=== PATIENT | female | born 1965 | race Caucasian/White ===

== ENCOUNTER 2017-10-24 07:25 | Day surgery (SDC) | payer OTHER ==
[2017-10-24] MEDS ORDERED: Marcaine 0.5% SDV 10 ML IJ ONE (07:26)
[2017-10-24] MEDS ORDERED: DIPRIVAN 200 MG/20 ML IV ONE (07:26)
[2017-10-24] MEDS ORDERED: Lactated Ringers 1,000 ML IV ONE (07:26)
[2017-10-24] MEDS ORDERED: Xylocaine-Mpf 2% 5 Ml Vial IJ ONE (07:26)
[2017-10-24] MEDS ORDERED: Ketamine HCl 50 MG/ML IV ONE (07:26)
--- NOTE | 2017-10-24 10:20 | XRAY ---
Indication: Right L4-L5 MBB. Intraoperative fluoroscopy was provided for 22 seconds. 3 digital spot images submitted for interpretation demonstrates posterior spinal needle tips projecting over the right L3 and L4 pedicles. Correlate with intraoperative findings/report.
--- NOTE | 2017-10-24 10:22 | XRAY ---
22 seconds fluoroscopy time in surgery for right L4-5 MBB.
--- NOTE | 2017-10-25 09:37 | OP ---
DATE OF PROCEDURE: 941 SURGEON: Ralph June D.O. PREOPERATIVE DIAGNOSIS: Degenerative lumbar spine disease, spondylosis, low back pain. POSTOPERATIVE DIAGNOSIS: Degenerative lumbar spine disease, spondylosis, low back pain. PROCEDURE PERFORMED: Right L4-L3 medial branch block under fluoroscopic guidance. DESCRIPTION OF THE PROCEDURE: The patient was taken to the operating room and placed in the prone position on the table. Skin at the injection site was prepped and draped in sterile fashion. Under fluoroscopy, bony anatomy of the targeted injection site was visualized. Induction agent was given as per anesthesia while vital signs were monitored. Local anesthetic agent of 0.5 cc of 1% lidocaine preservative free was introduced to anesthetize the skin and the subcutaneous tissue through the injection site. Under fluoroscopic guidance, a #20 gauge standard spinal needle was advanced into the target medial branch through the oblique approach. The preservative free 0.5 cc of 1% lidocaine and 0.5 cc of 0.25% Marcaine were injected into each of the targeted medial branch nerve. After the needle was being removed, the skin was cleansed with alcohol and then a bandage was applied. No complications or adverse consequences were observed. The patient was returned to the holding area until stabilized before discharge to home. The residual pain after the procedure is 0 out of 10, and there are no acute changes of the lower extremities motor function. No acute lower extremity muscle weakness after the procedure. The patient will be followed up within ten days after the injection for re-evaluation.
== END 2017-10-24 10:23 | disposition home or self-care (01) ==
LOC: SDC-PAIN 07:25
PROVIDERS: ATTEND Internal Medicine
DX: M46.96 Unspecified inflammatory spondylopathy, lumbar region (principal); M51.36 Other intervertebral disc degeneration, lumbar region; M15.9 Polyosteoarthritis, unspecified; M62.838 Other muscle spasm
CPT/HCPCS: 64493; 64494; 72020; 76000; J2704

== ENCOUNTER 2018-04-12 06:08 | Emergency (ER) | payer OTHER ==
[2018-04-12] MEDS ORDERED: Sodium Chloride 0.9% 1000 ML 1,000 ML IV STA ×2 (06:37→08:29)
[2018-04-12] MEDS ORDERED: TORAdol 30 mg Injection IV ONE (06:38)
[2018-04-12] MEDS ORDERED: Sodium Chloride 0.9% 1000 ML 1,000 ML ONE ×2 (06:44→08:34)
[2018-04-12] MEDS ORDERED: TORAdol 30 mg Injection ONE (06:44)
--- NOTE | 2018-04-12 06:44 | ERPHSYRPT ---
- History of Present Illness Source: patient Exam Limitations: no limitations Patient Subjective Stated Complaint: Pain in bilateral upper and medial back, hx of arthritis in back Triage Nursing Assessment: Pt c/o of pain in her upper back and down her spine, hx of osteoarthritis in her back, rates pain 10/10, BP 173/100, stable gait, no difficulty with strength, appears to be in pain Timing/Duration: day(s) Severity: severe Modifying Factors: Improves With: nothing Associated Symptoms: denies symptoms Hx Tetanus, Diphtheria Vaccination/Date Given: No Hx Influenza Vaccination/Date Given: No Hx Pneumococcal Vaccination/Date Given: No <ENOC RANDHAWA - Last Filed: 04/12/18 06:44> <PEYTON SAUCEDO - Last Filed: 04/12/18 11:20> - History of Present Illness Time Seen by Provider: 04/12/18 06:33 Physician History: 53 y/o female with history of osteoarthritis and diabetes comes to the ER with complaints of bilateral mid back pain for the past week. Pt states that she ran out of her all her medications because of insurance issues, including her pain meds and insulin. Glucometer read HI. Pt has been urinating more frequently. Pt describes the back pain as sharp, constant, 10/10, and not relieved by tylenol # 3. Pt denies any fever, chills, abdominal pain, nausea, vomiting, diarrhea, chest pain or shortness of breath. (ENOC RANDHAWA) PMH of HTN, DM, high cholesterol, depression, and chronic back pain. (PEYTON SAUCEDO) Allergies/Adverse Reactions: No Known Drug Allergies Allergy (Verified 04/12/18 06:21) - Review of Systems Constitutional: No Fever, No Chills Eyes: No Symptoms Ears, Nose, & Throat: No Symptoms Respiratory: No Cough, No Dyspnea Cardiac: No Chest Pain, No Edema, No Syncope Abdominal/Gastrointestinal: No Abdominal Pain, No Nausea, No Vomiting, No Diarrhea Genitourinary Symptoms: No Dysuria, No Frequency, No Hematuria, No Urinary Retention Musculoskeletal: Back Pain, No Neck Pain Skin: No Rash Neurological: No Dizziness, No Focal Weakness, No Sensory Changes Psychological: No Symptoms Endocrine: No Symptoms All Other Systems: Reviewed and Negative <ENOC RANDHAWA - Last Filed: 04/12/18 06:44> - Past Medical History Pertinent Past Medical History: Yes Neurological History: Migraines, Peripheral Neuropathy ENT History: No Pertinent History Cardiac History: High Cholesterol, Hypertension Respiratory History: No Pertinent History Endocrine Medical History: Diabetes Type II Musculoskeletal History: Osteoarthritis GI Medical History: No Pertinent History History: Other Psycho-Social History: Depression Female Reproductive Disorders: No Pertinent History Other Medical History: PERIPHERAL NEUROPATHY. disc issues with back. incontinence - Past Surgical History Past Surgical History: Yes Neuro Surgical History: No Pertinent History Cardiac: No Pertinent History Respiratory: No Pertinent History Gastrointestinal: Cholecystectomy Genitourinary: Other Musculoskeletal: Other Female Surgical History: Hysterectomy, Tubal Ligation Other Surgical History: bladder tie up - Social History Smoking Status: Current every day smoker How long have you smoked: 30years Exposure to second hand smoke: Yes Drug Use: none Patient Lives Alone: No Significant Family History: no pertinent family hx - Female History Hx Now: No <ENOC RANDHAWA - Last Filed: 04/12/18 06:44> - Physical Exam General Appearance: moderate distress, alert Eye Exam: PERRL/EOMI, eyes nml inspection Ears, Nose, Throat Exam: normal ENT inspection, TMs normal, pharynx normal, moist mucous membranes Neck Exam: normal inspection, non-tender, supple, full range of motion Respiratory Exam: normal breath sounds, lungs clear, No respiratory distress Cardiovascular Exam: regular rate/rhythm, normal heart sounds, normal peripheral pulses Gastrointestinal/Abdomen Exam: soft, normal bowel sounds, No tenderness, No mass Back Exam: normal inspection, CVA tenderness, No vertebral tenderness Extremity Exam: normal inspection, normal range of motion, pelvis stable Neurologic Exam: alert, oriented x 3, cooperative, normal mood/affect, nml cerebellar function, nml station & gait, sensation nml, No motor deficits Skin Exam: normal color, warm, dry, No rash Lymphatic Exam: No adenopathy SpO2: 97 Oxygen Delivery: Room Air <ENOC RANDHAWA - Last Filed: 04/12/18 06:44> - Physical Exam Back Exam: muscle spasm (pt is very tender to palpation of thoracic paraspinous and scapular musculature.) <PEYTON SAUCEDO - Last Filed: 04/12/18 11:20> - Nursing Vital Signs Nursing Vital Signs: Initial Vital Signs Temperature 98.6 F 04/12/18 06:13 Pulse Rate 88 04/12/18 06:13 Blood Pressure 173/100 04/12/18 06:13 O2 Sat by Pulse Oximetry 97 04/12/18 06:13 Pain Scale Pain Intensity 10 - Course Nursing assessment & vital signs reviewed: Yes <ENOC RANDHAWA - Last Filed: 04/12/18 06:44> - CT Exams Abdomen/Pelvis CT Interpretation: Negative, Tele-radiologist Report (per Dr Cano), Other (mild fecal stasis; otherwise negative.) <PEYTON SAUCEDO - Last Filed: 04/12/18 11:20> Ordered Tests: Active Orders 24 hr Category Date Time Status ACCUCHECK [Accucheck] STAT Care 04/12/18 08:29 Active ACCUCHECK [Accucheck] STAT Care 04/12/18 09:34 Active ACCUCHECK [Accucheck] STAT Care 04/12/18 10:48 Active Cold Application STAT Care 04/12/18 08:59 Active ABDOMEN AND PELVIS W/0 CONTRAS [CT] Stat Exams 04/12/18 06:38 Completed AMYLASE Stat Lab 04/12/18 07:21 Completed CBC W DIFF Stat Lab 04/12/18 06:25 Completed CK-Creatinine Phosphokinase Stat Lab 04/12/18 06:25 Completed CMP Stat Lab 04/12/18 06:25 Completed CULTURE,URINE Stat Lab 04/12/18 06:25 Received LIPASE Stat Lab 04/12/18 07:21 Completed Lactic Acid Stat Lab 04/12/18 06:47 Results MAGNESIUM Stat Lab 04/12/18 06:25 Completed UA W/ MICROSCOPIC Stat Lab 04/12/18 06:25 Completed VENOUS BLOOD GAS Stat Lab 04/12/18 06:47 Results Medication Summary Discontinued Medications Generic Name Dose Route Start Last Admin Trade Name Freq PRN Reason Stop Dose Admin Cyclobenzaprine HCl 10 mg 04/12/18 08:02 04/12/18 08:07 Cyclobenzaprine 10 Mg PO 04/12/18 08:03 10 mg STAT ONE Administration Cyclobenzaprine HCl Confirm 04/12/18 08:05 Cyclobenzaprine 10 Mg Administered 04/12/18 08:06 Dose 10 mg .ROUTE .STK-MED ONE Diphenhydramine HCl 50 mg 04/12/18 08:55 04/12/18 09:04 Benadryl 50 Mg/Ml IV 04/12/18 08:56 50 mg STAT ONE Administration Diphenhydramine HCl Confirm 04/12/18 08:58 Benadryl 50 Mg/Ml Administered 04/12/18 08:59 Dose 50 mg .ROUTE .STK-MED ONE Sodium Chloride 1,000 mls @ 999 mls/hr 04/12/18 06:37 04/12/18 08:20 Sodium Chloride 0.9% 1000 Ml IV 04/12/18 07:37 999 mls/hr .Q1H1M STA Infusion Sodium Chloride Confirm 04/12/18 06:44 Sodium Chloride 0.9% 1000 Ml Administered 04/12/18 06:45 Dose 1,000 mls @ ud .ROUTE .STK-MED ONE Sodium Chloride 1,000 mls @ 999 mls/hr 04/12/18 08:29 04/12/18 08:39 Sodium Chloride 0.9% 1000 Ml IV 04/12/18 09:29 999 mls/hr .Q1H1M STA Administration Sodium Chloride Confirm 04/12/18 08:34 Sodium Chloride 0.9% 1000 Ml Administered 04/12/18 08:35 Dose 1,000 mls @ ud .ROUTE .STK-MED ONE Insulin Human Regular 10 unit 04/12/18 09:11 04/12/18 09:22 Novolin R IV 04/12/18 09:12 10 unit STAT ONE Administration Insulin Human Regular Confirm 04/12/18 09:18 Novolin R Administered 04/12/18 09:19 Dose 10 unit .ROUTE .STK-MED ONE Ketorolac Tromethamine 30 mg 04/12/18 06:38 04/12/18 06:48 Toradol 30 Mg Injection IV 04/12/18 06:39 30 mg STAT ONE Administration Ketorolac Tromethamine Confirm 04/12/18 06:44 Toradol 30 Mg Injection Administered 04/12/18 06:45 Dose 30 mg .ROUTE .STK-MED ONE Lorazepam 2 mg 04/12/18 08:02 04/12/18 08:07 Ativan 2 Mg/1 Ml Vial IV 04/12/18 08:03 2 mg STAT ONE Administration Lorazepam Confirm 04/12/18 08:05 Ativan 2 Mg/1 Ml Vial Administered 04/12/18 08:06 Dose 2 mg .ROUTE .STK-MED ONE Morphine Sulfate 4 mg 04/12/18 10:48 04/12/18 10:51 Morphine Sulfate 4 Mg Inj IV 04/12/18 10:49 4 mg STAT ONE Administration Morphine Sulfate Confirm 04/12/18 10:50 Morphine Sulfate 4 Mg Inj Administered 04/12/18 10:51 Dose 4 mg .ROUTE .STK-MED ONE Lab/Rad Data: Laboratory Result Diagrams 04/12/18 06:25 04/12/18 06:25 Laboratory Results 04/12/18 04/12/18 04/12/18 Range/Units 07:21 06:47 06:25 WBC (4.0-10.5) K/mm3 RBC (4.1-5.4) M/mm3 Hgb (12.0-16.0) gm/dl Hct (35-47) % MCV (78-100) fl MCH (26-32) pg MCHC (32-36) g/dl RDW (11.5-14.0) % Plt Count (150-450) K/mm3 MPV (6-9.5) fl Gran % (36.0-66.0) % Eos # (Auto) (0-0.5) Absolute Lymphs (auto) (1.0-4.6) Absolute Monos (auto) (0.0-1.3) Lymphocytes % (24.0-44.0) % Monocytes % (0.0-12.0) % Eosinophils % (0.00-5.0) % Basophils % (0.0-0.4) % Absolute Granulocytes (1.4-6.9) Basophils # (0-0.4) pO2/FiO2 Ratio 21.0 % VBG pH 7.34 (7.32-7.42) VBG pCO2 at Pat Temp 47 (42-55) mm/Hg VBG pO2 at Pat Temp 30 (25-40) mm/Hg VBG HCO3 25.4 (22-28) meq/L VBG O2 Sat (Dat) Pending VBG Base Excess -0.8 (-2.0-2.0) VBG Hemoglobin Pending VBG Carboxyhemoglobin Pending POC Potassium 5.1 (3.5-5.1) Sodium (137-145) mmol/L Potassium (3.5-5.1) mmol/L Chloride (98-107) mmol/L Carbon Dioxide (22-30) mmol/L Anion Gap (5-15) MEQ/L BUN (7-17) mg/dL Creatinine (0.52-1.04) mg/dL Estimated GFR ML/MIN Glucose (74-106) mg/dL Lactic Acid 1.1 (0.4-2.0) Calcium (8.4-10.2) mg/dL Magnesium (1.6-2.3) mg/dL Total Bilirubin (0.2-1.3) mg/dL AST (14-36) U/L ALT (0-35) U/L Alkaline Phosphatase (38-126) U/L Creatine Kinase (30-135) U/L Serum Total Protein (6.3-8.2) g/dL Albumin (3.5-5.0) g/dL Amylase < 30 L (30-110) U/L Lipase 87 (23-300) U/L Ur Collection Type CLEAN CATCH Urine Color LT.YELLOW (YELLOW) Urine Appearance CLEAR (CLEAR) Urine pH 5.0 (5-6) Ur Specific Mcleod 1.015 (1.005-1.025) Urine Protein 30 (Negative) Urine Ketones NEGATIVE (NEGATIVE) Urine Blood 250 (0-5) Michael/ul Urine Nitrite NEGATIVE (NEGATIVE) Urine Bilirubin NEGATIVE (NEGATIVE) Urine Urobilinogen NORMAL (0-1) mg/dL Ur Leukocyte Esterase TRACE (NEGATIVE) Urine Microscopic RBC 0-2 (0-2) /HPF Urine Microscopic WBC 2-5 (0-5) /HPF Ur Epithelial Cells MANY (FEW) /HPF Urine Bacteria FEW (NEGATIVE) /HPF Urine Culture Reflexed YES (NO) Urine Glucose 1000 (NEGATIVE) mg/dL Specimen Received 04/12/18 0700 04/12/18 04/12/18 Range/Units 06:25 06:25 WBC 4.9 (4.0-10.5) K/mm3 RBC 4.15 (4.1-5.4) M/mm3 Hgb 12.1 (12.0-16.0) gm/dl Hct 34.0 L (35-47) % MCV 81.9 (78-100) fl MCH 29.2 (26-32) pg MCHC 35.6 (32-36) g/dl RDW 14.7 H (11.5-14.0) % Plt Count 159 (150-450) K/mm3 MPV 11.8 H (6-9.5) fl Gran % 68.0 H (36.0-66.0) % Eos # (Auto) 0.04 (0-0.5) Absolute Lymphs (auto) 1.13 (1.0-4.6) Absolute Monos (auto) 0.37 (0.0-1.3) Lymphocytes % 22.9 L (24.0-44.0) % Monocytes % 7.5 (0.0-12.0) % Eosinophils % 0.8 (0.00-5.0) % Basophils % 0.8 (0.0-0.4) % Absolute Granulocytes 3.35 (1.4-6.9) Basophils # 0.04 (0-0.4) pO2/FiO2 Ratio % VBG pH (7.32-7.42) VBG pCO2 at Pat Temp (42-55) mm/Hg VBG pO2 at Pat Temp (25-40) mm/Hg VBG HCO3 (22-28) meq/L VBG O2 Sat (Dat) VBG Base Excess (-2.0-2.0) VBG Hemoglobin VBG Carboxyhemoglobin POC Potassium (3.5-5.1) Sodium 126 L (137-145) mmol/L Potassium 4.9 (3.5-5.1) mmol/L Chloride 94 L (98-107) mmol/L Carbon Dioxide 15 L* (22-30) mmol/L Anion Gap 21.6 H (5-15) MEQ/L BUN 35 H (7-17) mg/dL Creatinine 0.93 (0.52-1.04) mg/dL Estimated GFR > 60.0 ML/MIN Glucose 617 H* (74-106) mg/dL Lactic Acid (0.4-2.0) Calcium 9.2 (8.4-10.2) mg/dL Magnesium 1.6 (1.6-2.3) mg/dL Total Bilirubin 0.70 (0.2-1.3) mg/dL AST 11 L (14-36) U/L ALT 11 (0-35) U/L Alkaline Phosphatase 145 H (38-126) U/L Creatine Kinase 26 L (30-135) U/L Serum Total Protein 7.2 (6.3-8.2) g/dL Albumin 3.0 L (3.5-5.0) g/dL Amylase (30-110) U/L Lipase (23-300) U/L Ur Collection Type Urine Color (YELLOW) Urine Appearance (CLEAR) Urine pH (5-6) Ur Specific Mcleod (1.005-1.025) Urine Protein (Negative) Urine Ketones (NEGATIVE) Urine Blood (0-5) Michael/ul Urine Nitrite (NEGATIVE) Urine Bilirubin (NEGATIVE) Urine Urobilinogen (0-1) mg/dL Ur Leukocyte Esterase (NEGATIVE) Urine Microscopic RBC (0-2) /HPF Urine Microscopic WBC (0-5) /HPF Ur Epithelial Cells (FEW) /HPF Urine Bacteria (NEGATIVE) /HPF Urine Culture Reflexed (NO) Urine Glucose (NEGATIVE) mg/dL Specimen Received - Progress Progress: unchanged <ENOC RANDHAWA - Last Filed: 04/12/18 06:44> - Progress Progress: improved Counseled pt/family regarding: lab results, diagnosis, need for follow-up, rad results <PEYTON SAUCEDO - Last Filed: 04/12/18 11:20> - Progress Progress Note: 04/12/18 07:12 Pt care discussed and care accepted from Dr Randhawa at 07:00. 04/12/18 08:33 After 1 L NS by IV, accucheck is 599. will give another liter of NS. 04/12/18 08:34 (PEYTON SAUCEDO) <ENOC RANDHAWA - Last Filed: 04/12/18 06:44> - Departure Time of Disposition: 11:16 Departure Disposition: Home Critical Care Time: No <PEYTON SAUCEDO - Last Filed: 04/12/18 11:20> - Departure Clinical Impression: Back pain, Hyperglycemia Condition: Stable Referrals: EMILIE BURDEN [Primary Care Provider] - Additional Instructions: You have back pain that originates in the muscles of your back. You also have elevated blood glucose because you have not been taking your medicines for diabetes. You were given Toradol 30 mg, Ativan 2 mg, Benadryl 50 mg, morphine 4 mg, and 2 L of fluids by IV and Flexeril 10 mg orally in the ER. Take Flexeril 10 mg every 8 hours as needed. You have an appointment set up with Dr. Burden on Sunday. Prescriptions: Cyclobenzaprine HCl [Flexeril] 10 mg PO Q8H PRN PRN #10 tablet PRN Reason: Pain
[2018-04-12 07:03] LABS: Lactic Acid 1.1 (0.4-2.0); VBG BASE EXCESS -0.8 (-2.0-2.0); VBG HCO3- 25.4 meq/L (22-28); VBG POTASSIUM 5.1 (3.5-5.1); VBG pH 7.34 (7.32-7.42)
[2018-04-12 07:16] LABS: ALKALINE PHOSPHATASE 145 U/L (38-126); ANION GAP 21.6 MEQ/L (5-15); BLOOD UREA NITROGEN 35 mg/dL (7-17); CHLORIDE 94 mmol/L (98-107); CK-Creatinine Phosphokinase 26 U/L (30-135); Calcium 9.2 mg/dL (8.4-10.2); Creatinine 1 0.93 mg/dL (0.52-1.04); Potassium 4.9 mmol/L (3.5-5.1); SGOT/AST 11 U/L (14-36); SGPT/ALT 11 U/L (0-35); SODIUM 126 mmol/L (137-145); Total Protein 7.2 g/dL (6.3-8.2)
[2018-04-12 07:19] LABS: Glucose 617 mg/dL (74-106)
[2018-04-12 07:20] LABS: Carbon Dioxide 15 mmol/L (22-30)
[2018-04-12 07:30] LABS: Appearance CLEAR (CLEAR); Glucose 1000 mg/dL (NEGATIVE); Ketones NEGATIVE (NEGATIVE); Leukocyte Esterase TRACE (NEGATIVE); Nitrite NEGATIVE (NEGATIVE); Protein,Urine Dip 30 (Negative); Specific Gravity 1.015 (1.005-1.025); Urobilinogen NORMAL mg/dL (0-1)
[2018-04-12 07:31] LABS: Bilirubin NEGATIVE (NEGATIVE); Blood 250 Ery/ul (0-5); Epithelial Cells MANY /HPF (FEW); RBC 0-2 /HPF (0-2)
[2018-04-12 07:33] LABS: AMYLASE < 30 U/L (30-110); LIPASE 87 U/L (23-300)
[2018-04-12 07:36] LABS: Bacteria FEW /HPF (NEGATIVE)
[2018-04-12 07:48] LABS: BASOPHIL % 0.8 % (0.0-0.4); Basophil (Absolute #) 0.04 (0-0.4); Eosinophil % 0.8 % (0.00-5.0); Eosinophil (Absolute #) 0.04 (0-0.5); Granulocyte Absolute (ANC) 3.35 (1.4-6.9); Hemoglobin 12.1 gm/dl (12.0-16.0); Lymphocyte (Absolute #) 1.13 (1.0-4.6); Lymphocytes % 22.9 % (24.0-44.0); Mean Cell Volume 81.9 fl (78-100); Mean Corpuscular Hemoglobin 29.2 pg (26-32); Mean Corpuscular Hgb Concent. 35.6 g/dl (32-36); Mean Platelet Volume 11.8 fl (6-9.5); Monocyte (Absolute #) 0.37 (0.0-1.3); Monocytes % 7.5 % (0.0-12.0); Platelet Count 159 K/mm3 (150-450); Red Blood Count 4.15 M/mm3 (4.1-5.4); Red Cell Distribution Width 14.7 % (11.5-14.0); White Blood Count 4.9 K/mm3 (4.0-10.5)
[2018-04-12] MEDS ORDERED: Ativan 2 MG/1 ML VIAL IV ONE (08:02)
[2018-04-12] MEDS ORDERED: Cyclobenzaprine 10 MG PO ONE (08:02)
[2018-04-12] MEDS ORDERED: Cyclobenzaprine 10 MG ONE (08:05)
[2018-04-12] MEDS ORDERED: Ativan 2 MG/1 ML VIAL ONE (08:05)
--- NOTE | 2018-04-12 08:48 | XRAY ---
Indication: Abdomen pain. Multiple contiguous axial images obtained through the abdomen and pelvis without contrast as ordered. Comparison: None Lung bases demonstrate mild bibasilar dependent atelectasis. No infiltrate or effusion. Heart is not enlarged. Noncontrasted stomach and bowel loops appear nonobstructed. Mild diffuse scattered colonic fecal debris throughout. Normal appendix. Previous cholecystectomy and hysterectomy. No free fluid/air. A few hepatic calcified granulomas and 13.5 cm splenomegaly. Remaining liver, pancreas, spleen, adrenal glands, kidneys, ureters, and bladder bladder unremarkable for noncontrast exam. Minimal aortic calcifications without AAA. Osseous structures intact with mild multilevel spinal degenerative changes greatest at the lumbosacral junction. No ventral or inguinal hernias. Impression: 1. Mild fecal stasis without obstruction and splenomegaly. 2. Remaining CT abdomen/pelvis without contrast exam is negative. CTDI 23.33
[2018-04-12] MEDS ORDERED: BENADRYL 50 MG/ML IV ONE (08:55)
[2018-04-12] MEDS ORDERED: BENADRYL 50 MG/ML ONE (08:58)
[2018-04-12] MEDS ORDERED: NovoLIN R IV ONE (09:11)
[2018-04-12] MEDS ORDERED: NovoLIN R ONE (09:18)
[2018-04-12] MEDS ORDERED: MORPHINE SULFATE 4 MG INJ IV ONE (10:48)
[2018-04-12] MEDS ORDERED: MORPHINE SULFATE 4 MG INJ ONE (10:50)
[2018-04-12 10:59] VITALS: O2SAT 94
[2018-04-12 11:36] VITALS: BP 131/78; PULSE 80
== END 2018-04-12 11:35 | disposition home or self-care (01) ==
LOC: ED 06:08
DX: M54.9 Dorsalgia, unspecified (principal); E11.65 Type 2 diabetes mellitus with hyperglycemia; M62.830 Muscle spasm of back
CPT/HCPCS: 36415; 74176; 80053; 81000; 82150; 82550; 82805; 82962; 83605; 83690; 83735; 85025; 87086; 96360; 96361; 96374; 96375; 99285; J1200; J1885; J2060; J2270; A9270-GY

== ENCOUNTER 2018-09-29 10:09 | Emergency (ER) | payer OTHER ==
[2018-09-29 10:36] VITALS: BP 138/77; PULSE 88; O2SAT 97
[2018-09-29] MEDS ORDERED: BACIGUENT PACKET ONE (10:58)
[2018-09-29] MEDS ORDERED: XYLOCAINE 2% HCL 20 ML MDV ONE (10:58)
[2018-09-29] MEDS ORDERED: Adacel Vial IM ONE ×2 (10:58→11:00)
--- NOTE | 2018-09-29 10:58 | ERPHSYRPT ---
- History of Present Illness Source: patient Exam Limitations: no limitations Patient Subjective Stated Complaint: cut end of left thumb on a knife while cutting cucumbers at work at [employer]. Triage Nursing Assessment: 2-3 cm flap lac to end of left thumb with minimal bleeding. Physician History: Pt is a 53 y/o female that presented to the ED with a laceration on her left thumb. Pt was cutting cucumbers at work and cut her left thumb on the lateral side, and ended up with a flap. The pt denies F/C/S. No dizziness, no N/V. Timing/Duration: today Quality: painful Severity: mild Location: hands Possible Causes: no cause identified Associated Symptoms: denies symptoms Allergies/Adverse Reactions: No Known Drug Allergies Allergy (Verified 09/29/18 10:18) Hx Tetanus, Diphtheria Vaccination/Date Given: No Hx Influenza Vaccination/Date Given: No Hx Pneumococcal Vaccination/Date Given: No - Review of Systems Constitutional: No Fever, No Chills Eyes: No Symptoms Ears, Nose, & Throat: No Symptoms Respiratory: No Cough, No Dyspnea Cardiac: No Chest Pain, No Edema, No Syncope Abdominal/Gastrointestinal: No Abdominal Pain, No Nausea, No Vomiting, No Diarrhea Skin: Other (laceration that is in a flap fashin on the lateral left thumb.) - Past Medical History Pertinent Past Medical History: Yes Neurological History: Migraines, Peripheral Neuropathy ENT History: No Pertinent History Cardiac History: High Cholesterol, Hypertension Respiratory History: No Pertinent History Endocrine Medical History: Diabetes Type II Musculoskeletal History: Osteoarthritis GI Medical History: No Pertinent History History: Other Psycho-Social History: Depression Female Reproductive Disorders: No Pertinent History Other Medical History: PERIPHERAL NEUROPATHY. disc issues with back. incontinence - Past Surgical History Past Surgical History: Yes Neuro Surgical History: No Pertinent History Cardiac: No Pertinent History Respiratory: No Pertinent History Gastrointestinal: Cholecystectomy Genitourinary: Other Musculoskeletal: Other Female Surgical History: Hysterectomy, Tubal Ligation Other Surgical History: bladder tie up - Social History Smoking Status: Current every day smoker How long have you smoked: 5 Exposure to second hand smoke: No Drug Use: none Patient Lives Alone: No Significant Family History: no pertinent family hx - Female History Hx Now: No - Nursing Vital Signs Nursing Vital Signs: Initial Vital Signs Temperature 97.5 F 09/29/18 10:15 Pulse Rate 88 09/29/18 10:15 Respiratory Rate 16 09/29/18 10:15 Blood Pressure 138/77 09/29/18 10:15 O2 Sat by Pulse Oximetry 97 09/29/18 10:15 Pain Scale Pain Intensity 2 - Physical Exam General Appearance: no apparent distress, alert Eye Exam: PERRL/EOMI, eyes nml inspection Ears, Nose, Throat Exam: normal ENT inspection, pharynx normal, moist mucous membranes Skin Exam: laceration (laceration that is in a flap fashin on the lateral left thumb.) SpO2: 97 Procedures - Laceration/Wound Repair Left Upper Lateral Finger Wound Location: Left, hand (thumb) Wound Length (cm): 2 Wound's Depth, Shape: superficial, irregular (flap like laceration) Wound Explored: contaminated Irrigated: Yes Hibiclens Prep: Yes Anesthesia: local, 2% Lidocaine Volume Anesthetic (ccs): 5 Number of Sutures: 4 Deep Layer Suture Size/Type: 5:0 Sterile Dressing Applied?: Yes Splint Applied?: No Sling Applied?: No Progress: 09/29/18 10:58 The thumb was cleaned with hibiclens. $ stitches 5:0 were applied to 4 sides of the laceration. Skin glue was applied as well, and the laceration is a flap , and pt is aware that it might not adhere, and will fall later. The area was cleaned well, bacitracin was applied and the thumb is wrapped. Pt was instructed to cover the dressing and keep it dry and clean. She should f/u with PCp to remove stitches in 7-10 days. - Course Nursing assessment & vital signs reviewed: Yes - Progress Progress: improved Progress Note: 09/29/18 11:01 The thumb was cleaned with hibiclens. 4 stitches 5:0 were applied to 4 sides of the laceration. Skin glue was applied as well, and the laceration is a flap , and pt is aware that it might not adhere, and will fall later. The area was cleaned well, bacitracin was applied and the thumb is wrapped. Pt was instructed to cover the dressing and keep it dry and clean. She should f/u with PCP to remove stitches in 7-10 days. Will see patient in: office Counseled pt/family regarding: need for follow-up - Departure Time of Disposition: 11:02 Departure Disposition: Home Clinical Impression: Laceration of thumb Condition: Stable Critical Care Time: No Referrals: EMILIE BURDEN [Primary Care Provider] - Instructions: Wound Care (DC), Laceration Repair With Glue (DC), Laceration Repair With Stitches (DC) Additional Instructions: Keep area clean and dry and f/u with PCP in 7-10 days. Finish Augmentin as ordered. Prescriptions: Amox Tr/Potass Clav. 875 mg [Augmentin 875-125 Tablet] 1 each PO BID 7 Days #14 tablet
[2018-09-29] MEDS ORDERED: BACIGUENT PACKET TP ONE (11:00)
[2018-09-29] MEDS ORDERED: XYLOCAINE 2% HCL 20 ML MDV IJ ONE (11:00)
== END 2018-09-29 11:50 | disposition home or self-care (01) ==
LOC: ED 10:09
DX: S61.012A Laceration without foreign body of left thumb without damage to nail, initial encounter (principal); W26.0XXA Contact with knife, initial encounter; W45.8XXA Other foreign body or object entering through skin, initial encounter; Y92.511 Restaurant or cafe as the place of occurrence of the external cause; Y99.0 Civilian activity done for income or pay; G62.9 Polyneuropathy, unspecified; E78.00 Pure hypercholesterolemia, unspecified; I10 Essential (primary) hypertension; E11.9 Type 2 diabetes mellitus without complications; M19.90 Unspecified osteoarthritis, unspecified site; F41.9 Anxiety disorder, unspecified
CPT/HCPCS: 12001; 90471; 90715; 99284; A9270-GY

== ENCOUNTER 2020-02-16 12:43 | Emergency (ER) | payer MEDICAID, OTHER ==
--- NOTE | 2020-02-16 13:56 | XRAY ---
Indication: Low back pain. Comparison: December 06, 2016. 3 view lumbar spine unchanged again demonstrating normal alignment with minimal multilevel endplate spurring, moderate/advanced L5-S1 degenerative disc disease, mild bilateral L5-S1 degenerative facet arthropathy, and cholecystectomy clips. No new/acute findings.
[2020-02-16] MEDS ORDERED: MORPHINE SULFATE 2 MG INJ IM ONE (14:06)
[2020-02-16] MEDS ORDERED: MORPHINE SULFATE 2 MG INJ ONE (14:16)
--- NOTE | 2020-02-16 14:58 | ERPHSYRPT ---
- History of Present Illness Time Seen by Provider: 02/16/20 12:55 Source: patient Exam Limitations: no limitations Patient Subjective Stated Complaint: back pain Triage Nursing Assessment: pt to ED c/o back pain x 1 week. states has been using ibuprofen, alleve, tylenol and heat packs at home with no relief. denies injury, pt woke with back ache last sunday. rates 10/10 that worsens with ambulation. hx osteoarthritis. "it feels like a nerve pain, its shooting and sharp sometimes." ambulatory without assistance, A&Ox4, lung sounds clear, heart sounds clear. denies urinary or bowel problems at this time. Physician History: Patient is a 54-year-old female presents to our ED with complaints of low back pain that started approximately 1 week ago. Pain described as an ache that is well localized. No radiation. Pain worse with movement and palpation. Pain improved with rest. Patient denies trauma. However patient does state that she was pulling weeds 2 days before the onset of her symptoms. She does not recall any injury or pain at that time. Patient denies fever. No saddle anesthesia. No lower extremity numbness tingling or weakness. Symptoms are constant. Symptoms are moderate in intensity. Patient denies recent back procedures. Timing/Duration: today Severity: moderate Modifying Factors: Improves With: immobilization Associated Symptoms: denies symptoms Allergies/Adverse Reactions: No Known Drug Allergies Allergy (Verified 02/16/20 12:59) Hx Tetanus, Diphtheria Vaccination/Date Given: No Hx Influenza Vaccination/Date Given: No Hx Pneumococcal Vaccination/Date Given: No Travel Risk - International Travel Have you traveled outside of the country in past 3 weeks: No - Coronavirus Screening Are you exhibiting any of the following symptoms?: No Close contact with a COVID-19 positive Pt in past 14-21 Days: No - Review of Systems Constitutional: No Symptoms, No Fever, No Chills Eyes: No Symptoms Ears, Nose, & Throat: No Symptoms Respiratory: No Symptoms, No Cough, No Dyspnea Cardiac: No Symptoms, No Chest Pain, No Edema, No Syncope Abdominal/Gastrointestinal: No Symptoms, No Abdominal Pain, No Nausea, No Vomiting, No Diarrhea Genitourinary Symptoms: No Symptoms, No Dysuria Musculoskeletal: No Symptoms, No Back Pain, No Neck Pain Skin: No Symptoms, No Rash Neurological: No Symptoms, No Dizziness, No Focal Weakness, No Sensory Changes Psychological: No Symptoms Endocrine: No Symptoms Hematologic/Lymphatic: No Symptoms Immunological/Allergic: No Symptoms All Other Systems: Reviewed and Negative - Past Medical History Pertinent Past Medical History: Yes Neurological History: Migraines, Peripheral Neuropathy ENT History: No Pertinent History Cardiac History: High Cholesterol, Hypertension Respiratory History: No Pertinent History Endocrine Medical History: Diabetes Type II Musculoskeletal History: Osteoarthritis GI Medical History: No Pertinent History History: Other Psycho-Social History: Depression Female Reproductive Disorders: No Pertinent History Other Medical History: PERIPHERAL NEUROPATHY. disc issues with back. inco ntinence - Past Surgical History Past Surgical History: Yes Neuro Surgical History: No Pertinent History Cardiac: No Pertinent History Respiratory: No Pertinent History Gastrointestinal: Cholecystectomy Genitourinary: Other Musculoskeletal: No Pertinent History Female Surgical History: Hysterectomy, Tubal Ligation Other Surgical History: bladder tie up - Social History Smoking Status: Current every day smoker How long have you smoked: years Exposure to second hand smoke: No Drug Use: none Patient Lives Alone: No Significant Family History: no pertinent family hx - Female History Hx Now: No - Nursing Vital Signs Nursing Vital Signs: Initial Vital Signs Temperature 99.1 F 02/16/20 12:52 Pulse Rate 102 H 02/16/20 12:52 Respiratory Rate 16 02/16/20 12:52 Blood Pressure 170/112 02/16/20 12:52 O2 Sat by Pulse Oximetry 96 02/16/20 12:52 Pain Scale Pain Intensity [] 10 Pain Intensity 2 - Physical Exam General Appearance: no apparent distress, alert Eye Exam: PERRL/EOMI, eyes nml inspection Ears, Nose, Throat Exam: normal ENT inspection, TMs normal, pharynx normal, mo ist mucous membranes Neck Exam: normal inspection, non-tender, supple, full range of motion Respiratory Exam: normal breath sounds, lungs clear, No respiratory distress Cardiovascular Exam: regular rate/rhythm, normal heart sounds, normal peripheral pulses Gastrointestinal/Abdomen Exam: soft, normal bowel sounds, No tenderness, No mass Back Exam: normal inspection, normal range of motion, No CVA tenderness, No vertebral tenderness Extremity Exam: normal inspection, normal range of motion, pelvis stable Neurologic Exam: alert, oriented x 3, cooperative, normal mood/affect, nml cerebellar function, nml station & gait, sensation nml, No motor deficits Skin Exam: normal color, warm, dry, No rash Lymphatic Exam: No adenopathy SpO2: 98 O2 Delivery: Room Air - Course Nursing assessment & vital signs reviewed: Yes EKG Interpreted by Me: RATE (75), Sinus Rhythm, NORMAL AXIS, NORMAL INTERVALS - Radiology Exams L-Spine X-ray Interpretation: Teleradiologist Report (Alignment with minimal multilevel endplate spurring. Moderate/advanced L5-S1 degenerative disc disease. Mild bilateral L5-S1 degenerative facet arthropathy and cholecystectomy clips. No new or acute findings.) Ordered Tests: Active Orders 24 hr Category Date Time Status EKG-ER Only STAT Care 02/16/20 15:52 Active IV Insertion STAT Care 02/16/20 15:52 Active LUMBAR LIMITED (2 OR 3 VIEWS) Stat Exams 02/16/20 13:19 Completed CBC W DIFF Stat Lab 02/16/20 16:00 Completed CMP Stat Lab 02/16/20 16:00 Completed CULTURE,URINE Stat Lab 02/16/20 13:34 Received TROPONIN Q3H Lab 02/16/20 16:00 Received TROPONIN Q3H Lab 02/16/20 19:00 Ordered TROPONIN Q3H Lab 02/16/20 22:00 Ordered TROPONIN Q3H Lab 02/17/20 01:00 Ordered TROPONIN Q3H Lab 02/17/20 04:00 Ordered UA W/RFX UR CULTURE Stat Lab 02/16/20 13:34 Completed Medication Summary Generic Name Dose Route Start Last Admin Trade Name Freq PRN Reason Stop Dose Admin Sodium Chloride 1,000 mls @ 999 mls/hr 02/16/20 15:52 02/16/20 16:08 Sodium Chloride 0.9% 1000 Ml IV 02/16/20 16:52 999 mls/hr .Q1H1M STA Administration Discontinued Medications Generic Name Dose Route Start Last Admin Trade Name Freq PRN Reason Stop Dose Admin Ceftriaxone Sodium/Dextrose 1 g in 50 mls @ 100 mls/hr 02/16/20 15:52 02/16/20 16:08 Rocephin 1 Gm-D5w 50 Ml Bag IV 02/16/20 16:21 100 mls/hr STAT STA 100 mls/hr Administration Sodium Chloride Confirm 02/16/20 16:04 Sodium Chloride 0.9% 1000 Ml Administered 02/16/20 16:05 Dose 1,000 mls @ ud .ROUTE .STK-MED ONE Ceftriaxone Sodium/Dextrose Confirm 02/16/20 16:04 Rocephin 1 Gm-D5w 50 Ml Bag Administered 02/16/20 16:05 Dose 1 g in 50 mls @ ud IV .STK-MED ONE Morphine Sulfate 6 mg 02/16/20 14:06 02/16/20 14:19 Morphine Sulfate 2 Mg Inj IM 02/16/20 14:07 4 mg STAT ONE Administration Morphine Sulfate Confirm 02/16/20 14:16 Morphine Sulfate 2 Mg Inj Administered 02/16/20 14:17 Dose 6 mg .ROUTE .STK-MED ONE Lab/Rad Data: Laboratory Result Diagrams 02/16/20 16:00 02/16/20 16:00 Laboratory Results 02/16/20 02/16/20 02/16/20 Range/Units 16:00 16:00 13:34 WBC 6.3 (4.0-10.5) K/mm3 RBC 4.18 (4.1-5.4) M/mm3 Hgb 12.7 (12.0-16.0) gm/dl Hct 35.9 (35-47) % MCV 85.9 (78-100) fl MCH 30.4 (26-32) pg MCHC 35.4 (32-36) g/dl RDW 13.7 (11.5-14.0) % Plt Count 187 (150-450) K/mm3 MPV 11.3 H (7.5-11.0) fl Gran % 63.7 (36.0-66.0) % Eos # (Auto) 0.05 (0-0.5) Absolute Lymphs (auto) 1.72 (1.0-4.6) Absolute Monos (auto) 0.49 (0.0-1.3) Lymphocytes % 27.5 (24.0-44.0) % Monocytes % 7.8 (0.0-12.0) % Eosinophils % 0.8 (0.00-5.0) % Basophils % 0.2 (0.0-0.4) % Absolute Granulocytes 3.98 (1.4-6.9) Basophils # 0.01 (0-0.4) Sodium 134 L (137-145) mmol/L Potassium 4.4 (3.5-5.1) mmol/L Chloride 101 (98-107) mmol/L Carbon Dioxide 25 (22-30) mmol/L Anion Gap 12.6 (5-15) MEQ/L BUN 30 H (7-17) mg/dL Creatinine 0.79 (0.52-1.04) mg/dL Estimated GFR > 60.0 ML/MIN Glucose 261 H (74-106) mg/dL Calcium 9.7 (8.4-10.2) mg/dL Total Bilirubin 1.10 (0.2-1.3) mg/dL AST 16 (14-36) U/L ALT 12 (0-35) U/L Alkaline Phosphatase 111 (38-126) U/L Serum Total Protein 7.6 (6.3-8.2) g/dL Albumin 4.0 (3.5-5.0) g/dL Urine Color YELLOW (YELLOW) Urine Appearance SLIGHTLY CLOUDY (CLEAR) Urine pH 5.0 (5-6) Ur Specific Sutton 1.033 (1.005-1.025) Urine Protein >=500 (Negative) Urine Ketones NEGATIVE (NEGATIVE) Urine Blood NEGATIVE (0-5) Michael/ul Urine Nitrite NEGATIVE (NEGATIVE) Urine Bilirubin NEGATIVE (NEGATIVE) Urine Urobilinogen NEGATIVE (0-1) mg/dL Ur Leukocyte Esterase TRACE (NEGATIVE) Urine WBC (Auto) 6-10 (0-5) /HPF Urine RBC (Auto) 0-2 (0-2) /HPF U Hyaline Cast (Auto) 6-10 (0-2) /LPF U Epithel Cells (Auto) RARE (FEW) /HPF Urine Bacteria (Auto) RARE (NEGATIVE) /HPF Unidentified Crystals 2-5 (NEGATIVE) /HPF Urine Mucus (Auto) SLIGHT (NEGATIVE) /HPF Urine Culture Reflexed YES (NO) Urine Glucose >=500 (NEGATIVE) mg/dL - Progress Progress: improved Progress Note: 02/16/20 15:45 Patient reassessed. Patient feels much better. Pain down to 2 out of 10. Patient requesting discharge. X-ray reveals chronic changes. UA reveals UTI, possible dehydration, glucosuria, proteinuria. In light of these findings we will further work-up to involve laboratory draw to assess kidney function and glucose/possible DKA. Counseled pt/family regarding: lab results, diagnosis, need for follow-up, rad results - Departure Departure Disposition: Home Clinical Impression: Dehydration, Proteinuria, Glucosuria, UTI (urinary tract infection) Condition: Stable Critical Care Time: Yes Referrals: MELONY ROBERTS [Primary Care Provider] - Prescriptions: Nitrofurantoin Macro 100 mg [Macrobid 100MG Capsule] 100 mg PO BID 7 Days #14 capsule
[2020-02-16 15:20] VITALS: BP 142/90
[2020-02-16 15:33] LABS: Appearance SLIGHTLY CLOUDY (CLEAR); Bacteria RARE /HPF (NEGATIVE); Bilirubin NEGATIVE (NEGATIVE); Blood NEGATIVE Ery/ul (0-5); Epithelial Cells RARE /HPF (FEW); Glucose >=500 mg/dL (NEGATIVE); Ketones NEGATIVE (NEGATIVE); Leukocyte Esterase TRACE (NEGATIVE); Mucus SLIGHT /HPF (NEGATIVE); Nitrite NEGATIVE (NEGATIVE); Protein,Urine Dip >=500 (Negative); RBC 0-2 /HPF (0-2); Specific Gravity 1.033 (1.005-1.025); Urobilinogen NEGATIVE mg/dL (0-1)
[2020-02-16] MEDS ORDERED: Sodium Chloride 0.9% 1000 ML 1,000 ML IV STA (15:52)
[2020-02-16] MEDS ORDERED: ROCEPHIN 1 Gm-D5w 50 ml Bag** 1 G/50 ML IVPB IV STA (15:52)
[2020-02-16] MEDS ORDERED: Sodium Chloride 0.9% 1000 ML 1,000 ML ONE (16:04)
[2020-02-16] MEDS ORDERED: ROCEPHIN 1 Gm-D5w 50 ml Bag** 1 G/50 ML IVPB IV ONE (16:04)
[2020-02-16 16:10] LABS: Absolute Neutrophil Ct (ANC) 3.98 (1.4-6.9); BASOPHIL % 0.2 % (0.0-0.4); Basophil (Absolute #) 0.01 (0-0.4); Eosinophil % 0.8 % (0.00-5.0); Eosinophil (Absolute #) 0.05 (0-0.5); Hematocrit 35.9 % (35-47); Hemoglobin 12.7 gm/dl (12.0-16.0); Lymphocyte (Absolute #) 1.72 (1.0-4.6); Lymphocytes % 27.5 % (24.0-44.0); Mean Cell Volume 85.9 fl (78-100); Mean Corpuscular Hemoglobin 30.4 pg (26-32); Mean Corpuscular Hgb Concent. 35.4 g/dl (32-36); Mean Platelet Volume 11.3 fl (7.5-11.0); Monocyte (Absolute #) 0.49 (0.0-1.3); Monocytes % 7.8 % (0.0-12.0); Neutrophil % 63.7 % (36.0-66.0); Platelet Count 187 K/mm3 (150-450); Red Blood Count 4.18 M/mm3 (4.1-5.4); Red Cell Distribution Width 13.7 % (11.5-14.0); White Blood Count 6.3 K/mm3 (4.0-10.5)
[2020-02-16 16:20] LABS: ALKALINE PHOSPHATASE 111 U/L (38-126); ANION GAP 12.6 MEQ/L (5-15); BLOOD UREA NITROGEN 30 mg/dL (7-17); CHLORIDE 101 mmol/L (98-107); Calcium 9.7 mg/dL (8.4-10.2); Carbon Dioxide 25 mmol/L (22-30); Creatinine 1 0.79 mg/dL (0.52-1.04); Glucose 261 mg/dL (74-106); Potassium 4.4 mmol/L (3.5-5.1); SGOT/AST 16 U/L (14-36); SGPT/ALT 12 U/L (0-35); SODIUM 134 mmol/L (137-145); Total Protein 7.6 g/dL (6.3-8.2)
[2020-02-16 16:40] VITALS: PULSE 78
[2020-02-16] MEDS ORDERED: TYLENOL 325 MG PO ONE (16:40)
[2020-02-16 16:41] VITALS: O2SAT 98
[2020-02-16] MEDS ORDERED: TYLENOL 325 MG ONE (16:43)
== END 2020-02-16 16:54 | disposition home or self-care (01) ==
LOC: ED 12:43
DX: M54.89 Other dorsalgia (principal); E78.5 Hyperlipidemia, unspecified; I10 Essential (primary) hypertension; E11.9 Type 2 diabetes mellitus without complications; N39.0 Urinary tract infection, site not specified; E86.0 Dehydration; R80.9 Proteinuria, unspecified; R81 Glycosuria
CPT/HCPCS: 36000; 36415; 72100; 80053; 81001; 84484; 85025; 87077; 87086; 87186; 93005; 96365; 96372; 99284; J0696; J2270; A9270-GY

== ENCOUNTER 2020-02-17 01:27 | Observation (INO) | payer MEDICAID ==
[2020-02-17] MEDS ORDERED: MORPHINE SULFATE 4 MG INJ IM STA (02:28)
[2020-02-17] MEDS ORDERED: MORPHINE SULFATE 4 MG INJ IV ONE ×2 (02:44→03:45)
[2020-02-17] MEDS ORDERED: TORAdol 30 mg Injection IV ONE (02:48)
--- NOTE | 2020-02-17 02:56 | ERPHSYRPT ---
- History of Present Illness Time Seen by Provider: 02/17/20 01:45 Source: patient Exam Limitations: no limitations Patient Subjective Stated Complaint: pt states, "I was just here yesterday but my back is still hurting me". Triage Nursing Assessment: pt c/o low back pain across the lower back region. Pt states "pain started about a week ago. The only thing that could've possibly triggered it was pulling weeds". Pt was here in the ER on 02/16/20 during the afternoon for the same thing. Pt states, " I was just here yesterday but my back is still hurting me". Dr. Lynch offered to admit pt at that time and she refused. Physician History: Patient is a 54-year-old female presents to our ED with complaints of back pain. Patient was in our ED yesterday for the same. Patient states she may have injured her back pulling weeds. Pain described as an ache that is localized to her lumbar spine. Pain worse with movement and palpation. Pain improved with rest. Patient was treated for her pain yesterday pain resolved. Pain reoccurred while she was sleeping at night. No trauma. No fever. No nausea or vomiting. No change in bowel bladder function. No saddle anesthesia. No lower extremity numbness tingling weakness. Patient is otherwise healthy. She voices no other complaints at this time. Timing/Duration: week(s) Method of Injury: other Quality: aching Back Pain Location: lumbar spine Severity of Pain-Max: moderate Severity of Pain-Current: mild Associated Symptoms: No fever, No sweating, No urinary incontinence, No loss of bowel control, No constipation, No nausea, No vomiting, No problems urinating, No light-headedness, No dizziness, No numbness in legs/feet, No sensory/motor loss Allergies/Adverse Reactions: No Known Drug Allergies Allergy (Verified 02/16/20 12:59) Hx Tetanus, Diphtheria Vaccination/Date Given: No Hx Influenza Vaccination/Date Given: No Hx Pneumococcal Vaccination/Date Given: No Immunizations Up to Date: No Travel Risk - International Travel Have you traveled outside of the country in past 3 weeks: No - Coronavirus Screening Are you exhibiting any of the following symptoms?: No Close contact with a COVID-19 positive Pt in past 14-21 Days: No - Review of Systems Constitutional: No Symptoms, No Fever, No Chills Eyes: No Symptoms Ears, Nose, & Throat: No Symptoms Respiratory: No Symptoms, No Cough, No Dyspnea Cardiac: No Symptoms, No Chest Pain, No Edema, No Syncope Abdominal/Gastrointestinal: No Symptoms, No Abdominal Pain, No Nausea, No Vomiting, No Diarrhea Genitourinary Symptoms: No Symptoms, No Dysuria Musculoskeletal: No Symptoms, No Back Pain, No Neck Pain Skin: No Symptoms, No Rash Neurological: No Symptoms, No Dizziness, No Focal Weakness, No Sensory Changes Psychological: No Symptoms Endocrine: No Symptoms Hematologic/Lymphatic: No Symptoms Immunological/Allergic: No Symptoms All Other Systems: Reviewed and Negative - Past Medical History Pertinent Past Medical History: Yes Neurological History: Migraines, Peripheral Neuropathy ENT History: No Pertinent History Cardiac History: High Cholesterol, Hypertension Respiratory History: No Pertinent History Endocrine Medical History: Diabetes Type II Musculoskeletal History: Osteoarthritis GI Medical History: No Pertinent History History: Other Psycho-Social History: Depression Female Reproductive Disorders: No Pertinent History Other Medical History: PERIPHERAL NEUROPATHY. disc issues with back. incontinence - Past Surgical History Past Surgical History: Yes Neuro Surgical History: No Pertinent History Cardiac: No Pertinent History Respiratory: No Pertinent History Gastrointestinal: Cholecystectomy Genitourinary: Other Musculoskeletal: No Pertinent History Female Surgical History: Hysterectomy, Tubal Ligation Other Surgical History: bladder tie up - Social History Smoking Status: Current every day smoker How long have you smoked: 7 Exposure to second hand smoke: No Drug Use: none Patient Lives Alone: No Significant Family History: no pertinent family hx - Nursing Vital Signs Nursing Vital Signs: Initial Vital Signs Temperature 97.9 F 02/17/20 01:38 Pulse Rate 94 H 02/17/20 01:38 Respiratory Rate 16 02/17/20 01:38 Blood Pressure 177/118 02/17/20 01:38 O2 Sat by Pulse Oximetry 99 02/17/20 01:38 Pain Scale Pain Intensity [Lower Back] 7 Pain Intensity 7 - Physical Exam General Appearance: no apparent distress, alert Eye Exam: PERRL/EOMI, eyes nml inspection Neck Exam: normal inspection, non-tender, supple, full range of motion, No meningismus, No midline tenderness Respiratory Exam: normal breath sounds, lungs clear, No respiratory distress Cardiovascular Exam: regular rate/rhythm, normal heart sounds Gastrointestinal Exam: soft, No tenderness, No mass Back Exam: normal inspection, normal range of motion, vertebral tenderness, other (And across lower back. Overlying soft tissue intact. No signs of trauma.), No CVA tenderness Extremity Exam: normal inspection, normal range of motion, No calf tenderness, No pedal edema Peripheral Pulses: dorsalis-pedis (R): 2+, dorsalis-pedis (L): 2+ Neurologic Exam: alert, oriented x 3, cooperative, nut roaster II-XII nml as tested, normal mood/affect, nml station & gait, sensation nml, No motor deficits Skin Exam: normal color, warm, dry, No rash Lymphatic Exam: No adenopathy SpO2 Interpretation: normal SpO2: 99 O2 Delivery: Room Air - Course Nursing assessment & vital signs reviewed: Yes - CT Exams Lumbar Spine CT Interpretation: Tele-radiologist Report (No acute fracture or malalignment of the lumbar spine. Degenerative changes at L4-L5 produce moderate to severe spinal canal stenosis.) Ordered Tests: Active Orders 24 hr Category Date Time Status LUMBAR SPINE W/O [CT] Stat Exams 02/17/20 01:39 Taken Medication Summary Discontinued Medications Generic Name Dose Route Start Last Admin Trade Name Freq PRN Reason Stop Dose Admin Ketorolac Tromethamine 30 mg 02/17/20 02:48 Toradol 30 Mg Injection IV 02/17/20 02:49 STAT ONE Morphine Sulfate 4 mg 02/17/20 02:28 Morphine Sulfate 4 Mg Inj IM 02/17/20 02:29 ONCE STA Morphine Sulfate 4 mg 02/17/20 02:44 Morphine Sulfate 4 Mg Inj IV 02/17/20 02:45 STAT ONE - Progress Progress: improved Progress Note: 02/17/20 03:[address] Pain improved. CT lumbar spine shows chronic degenerative changes. No acute fracture dislocations. Patient states she is ready for discharge. Patient will follow-up with her primary care doctor within 48 hours for reevaluation. Steroid not administered due to history of diabetes. 02/17/20 03:08 Counseled pt/family regarding: diagnosis, need for follow-up, rad results - Departure Departure Disposition: Home, Extended Care Facility Clinical Impression: Back pain, Central stenosis of spinal canal Condition: Stable Critical Care Time: No Referrals: MELONY ROBERTS [Primary Care Provider] - Additional Instructions: Discharge/Care Plan MARJORIE REICH was seen on 02/17/20 in the Emergency Room. The patient was counseled regarding Diagnosis,Lab results, Imaging studies, need for follow up and when to return to the Emergency Room. Prescriptions given: Discharge Note I have spoken with the patient and/or caregivers. I have explained the patient's condition, diagnosis and treatment plan based on the information available to me at this time. I have answered the patient's and/or caregiver's questions and addressed any concerns. The patient and/or caregivers have as good understanding of the patient's diagnosis, condition and treatment plan as can be expected at this point. The vital signs have been stable. The patient's condition is stable and appropriate for discharge from the emergency department. The patient will pursue further outpatient evaluation with the primary care physician or other designated or consulting physician as outlined in the discharge instructions. The patient and/or caregivers are agreeable to this plan of care and follow-up instructions have been explained in detail. The patient and/or caregivers have received these instruction. The patient/and or caregivers are aware that any significant change in condition or worsening of symptoms should prompt an immediate return to this or the closest emergency department or call 911.
[2020-02-17] MEDS ORDERED: TORAdol 30 mg Injection ONE (02:58)
[2020-02-17] MEDS ORDERED: MORPHINE SULFATE 4 MG INJ ONE (03:47)
[2020-02-17] MEDS: MORPHINE SULFATE 2 MG INJ IV PRN ×4 (07:35→22:17)
[2020-02-17] MEDS: HUMALOG SQ PRN ×3 (08:20→21:40)
--- NOTE | 2020-02-17 09:05 | XRAY ---
Indication: Chronic low back pain. Multiple contiguous axial images obtained through the lumbar spine. Sagittal and coronal reformatted images obtained. Comparison: CT abdomen/pelvis April 12, 2018. Axial images negative for acute fracture, suspicious bony lesions, or spinal canal stenosis. Stable L4-S1 broad-based disc bulge, L5-S1 degenerative vacuum disc phenomena, and bilateral L4-S1 degenerative facet hypertrophy. Sagittal and coronal reformatted images again demonstrates normal alignment with L5-S1 disc space loss. Remaining vertebral body heights/disc spaces maintained. No acute compression fracture or subluxation. Visualized noncontrasted soft tissues again demonstrates minimal aortic calcifications. Impression: 1. Stable L4-S1 degenerative changes better evaluated with outpatient MRI if clinically warranted. 2. Negative for acute fracture or subluxation. Comment: Preliminary interpretation was made by [facility]. No critical discrepancy.
--- NOTE | 2020-02-17 10:16 | PCM.SSS ---
History of Present Illness - Chief Complaint Chief Complaint: Intractable back pain History of Present Illness: is a 54 year old female pt of Melony Cortes with DM (last seen 1 yr ago) who presented to ER with c/o low back pain. She had been pulling weeds and her lower back starting hurting about 8d ago - she lived with the pain all week but by yesterday she couldn't stand it. She had no insurance but was able to get temporary HIP. She came to the ER x 2 yesterday; first visit was treated with IV morphine with relief. The pain recurred at home and she returned and was admitted. Currently she is having 2-3/10 back pain with IV morphine. When she gets out of bed the pain is not exacerbated. Denies urinary retention or loss of bowel control. Denies paresthesias/radiation to LE. Will try mobic and flexeril; if she tolerates them well with decreased pain, will send pt home this afternoon. - Review of Systems Musculoskeletal: Back Pain All Other Systems: Reviewed and Negative Medications & Allergies Home Medications: Home Medication List No Reportable Medications [No Reported Medications] 02/17/20 [History Confirmed 02/17/20] Allergies/Adverse Reactions: Allergies Allergy/AdvReac Type Severity Reaction Status Date / Time No Known Drug Allergies Allergy Verified 02/17/20 04:56 - Past Medical History Past Medical History: Yes Neurological History: Migraines, Peripheral Neuropathy ENT History: No Pertinent History Cardiac History: High Cholesterol, Hypertension Respiratory History: No Pertinent History Endocrine Medical History: Diabetes Type II Musculoskelatal History: Osteoarthritis GI Medical History: No Pertinent History History: Other Pyscho-Social History: Depression Reproductive Disorders: No Pertinent History Comment: PERIPHERAL NEUROPATHY. disc issues with back. incontinence - Female History Are you now?: No - Past Surgical History Past Surgical History: Yes Neuro Surgical History: No Pertinent History Cardiac History: No Pertinent History Respiratory Surgery: No Pertinent History GI Surgical History: Cholecystectomy Genitourinary Surgical Hx: Other Musculskeletal Surgical Hx: No Pertinent History Female Surgical History: Hysterectomy, Tubal Ligation Other Surgical History: bladder tie up - Social History Smoking Status: Current every day smoker How long have you smoked: 7 Exposure to second hand smoke: No Alcohol: None Drug Use: none Significant Family History: no pertinent family hx - Physical Exam Vital Signs: Vital Signs - 24 hr Temp Pulse Resp BP Pulse Ox 02/17/20 08:00 98.0 F 67 18 148/76 99 02/17/20 07:43 97 02/17/20 05:04 97.8 F 64 18 181/86 96 02/17/20 04:58 97.8 F 64 18 181/86 96 02/17/20 04:24 97.9 F 64 18 181/86 96 02/17/20 04:07 96 02/17/20 03:10 99 02/17/20 02:27 69 16 160/105 94 L 02/17/20 01:38 97.9 F 94 H 16 177/118 99 General Appearance: no apparent distress, obese Neurologic Exam: alert, oriented x 3, cooperative Eye Exam: eyes nml inspection Ears, Nose, Throat Exam: moist mucous membranes Neck Exam: normal inspection, non-tender, No lymphadenopathy Respiratory Exam: normal breath sounds, lungs clear, No crackles/rales, No rhonchi, No wheezing Cardiovascular Exam: regular rate/rhythm, normal heart sounds, No murmur Gastrointestinal/Abdomen Exam: soft, normal bowel sounds, No tenderness, No distention, No mass, No guarding, No rebound Back Exam: normal inspection, other (spine nttp throughout. Paraspinal muscles nttp approx L1-L5. Patellar refl 2+ bilat.), No CVA tenderness, No rash Extremity Exam: normal inspection, No pedal edema, No swelling Skin Exam: normal color, warm, dry, No rash Results - Labs Lab/Micro Results: Accuchecks Accucheck Value: 322 Accuchecks Accucheck Value: 322 - Radiology Impressions Radiology Exams & Impressions: Radiology Procedures Category Date Time Status LUMBAR SPINE W/O [CT] Stat Exams 02/17/20 01:39 Completed Assessment/Plan (1) Back pain Current Visit: Yes Status: Acute Qualifiers: Back pain location: low back pain Chronicity: acute Back pain laterality: bilateral Sciatica presence: without sciatica Qualified Code(s): M54.5 - Low back pain Assessment & Plan: I think likely muscular. CT shows degenerative changes; recommended outpatient MRI if warranted. Will start anti-inflammatory and muscle relaxer. If doing well this afternoon can discharge to home with rx for each. Code(s): M54.9 - DORSALGIA, UNSPECIFIED (2) Diabetes mellitus Current Visit: Yes Status: Acute Qualifiers: Diabetes mellitus type: type 2 Diabetes mellitus skilled nursing insulin use: with termination clerk use Diabetes mellitus complication status: with neurologic complications Diabetes mellitus complication detail: with polyneuropathy Qualified Code(s): E11.42 - Type 2 diabetes mellitus with diabetic polyneuropathy; Z79.4 - moth exterminator (current) use of insulin Assessment & Plan: BS >350 this morning. Will resume some of her home meds; she will f/u closely with Andzrej Cortes. Code(s): E11.9 - TYPE 2 DIABETES MELLITUS WITHOUT COMPLICATIONS (3) HTN (hypertension) Current Visit: No Status: Chronic Qualifiers: Hypertension type: essential hypertension Qualified Code(s): I10 - Essential (primary) hypertension Code(s): I10 - ESSENTIAL (PRIMARY) HYPERTENSION Hospital Summary - Hospital Course Hospital Course: 54 yo female pt of Andrzej Cortes with DM here with intractable back pain. CT nonacute. Much improved on morphine; will try po mobic and flexeril, if pt doing well on them will d/c home today. F/u with Melony soon re: DM and back pain. May need outpatient MRI. - Vitals & Intake/Output Vital Signs: Vital Signs Temperature 98.0 F 02/17/20 08:00 Pulse Rate 67 02/17/20 08:00 Respiratory Rate 18 02/17/20 08:00 Blood Pressure 148/76 02/17/20 08:00 O2 Sat by Pulse Oximetry 99 02/17/20 08:00 Intake & Output: Intake & Output 02/14/20 02/15/20 02/16/20 02/17/20 11:59 11:59 11:59 11:59 Intake Total 480 Output Total 132 Balance 348 Weight 71.1 kg - Lab Lab Results-Last 24 Hrs: Accuchecks Accucheck Value: 322 Micro Results-Entire Visit: Accuchecks Accucheck Value: 322 - Radiology Exams Ordered Rad Exams-Entire Visit: Radiology Procedures Category Date Time Status LUMBAR SPINE W/O [CT] Stat Exams 02/17/20 01:39 Completed - Procedures and Test Procedures and Tests throughout Hospitalization: Therapy Orders & Screens 02/17/20 04:51 OT Screen per Nursing Assess ONCE Comment: Protocol Order Physician Instructions: Greater than 3 points order OT Admission Screening Reason For Exam: Triggered on Admission Diagnosis: Intractable back pain Open Wound/Cellutlitis/Pressure Ulcers: No Acute Fx/ORIF/Change in wt bearing status: No Severe MUSCULOSKELETAL pain: Yes ADL Dysfunction: No Acute CVA w/Hemiparesis/Hemiplegia: No Decreased Functional Mobility/Strength: Yes Sprain/Strain: No Acute Post-op Mobility Dysfunction: No Total Points: 6 PT Screen per Nursing Assess ONCE Comment: Protocol Order Physician Instructions: Greater than 3 points order PT Admission Screenin Reason For Exam: Triggered on Admission Diagnosis: Intractable back pain Open Wound/Cellutlitis/Pressure Ulcers: No Acute Fx/ORIF/Change in wt bearing status: No Severe MUSCULOSKELETAL pain: Yes ADL Dysfunction: No Acute CVA w/Hemiparesis/Hemiplegia: No Decreased Functional Mobility/Strength: Yes Sprain/Strain: No Acute Post-op Mobility Dysfunction: No Total Points: 6 Smoking Cessation Education ONCE Comment: Diagnosis: Intractable back pain Smoking Status: Current every day smoker How long have you smoked: 7 Have you smoked in the past 12 months: Yes Approximately how many cigarettes per day: 1ppd Do you dip or chew tobacco: No - Discharge Disposition: Home, Self-Care Condition: Stable Prescriptions: No Action No Reportable Medications [No Reported Medications] Follow up with: MELONY CORTES [Primary Care Provider] - 1 Week
[2020-02-17] MEDS: Cyclobenzaprine 10 MG PO SCH ×2 (10:58→21:17)
[2020-02-18] MEDS: HUMALOG SQ PRN ×4 (00:33→18:11)
[2020-02-18] MEDS: MORPHINE SULFATE 2 MG INJ IV PRN (02:23)
[2020-02-18] MEDS ORDERED: MORPHINE SULFATE 4 MG INJ IV ONE (02:37)
[2020-02-18] MEDS ORDERED: MORPHINE SULFATE 10 MG/ML IV PRN (02:38)
[2020-02-18 05:21] LABS: Absolute Neutrophil Ct (ANC) 2.43 (1.4-6.9); BASOPHIL % 0.2 % (0.0-0.4); Basophil (Absolute #) 0.01 (0-0.4); Eosinophil % 1.7 % (0.00-5.0); Eosinophil (Absolute #) 0.08 (0-0.5); Hematocrit 32.5 % (35-47); Lymphocyte (Absolute #) 1.68 (1.0-4.6); Lymphocytes % 35.7 % (24.0-44.0); Mean Cell Volume 88.1 fl (78-100); Mean Corpuscular Hemoglobin 29.8 pg (26-32); Mean Corpuscular Hgb Concent. 33.8 g/dl (32-36); Mean Platelet Volume 11.3 fl (7.5-11.0); Monocyte (Absolute #) 0.51 (0.0-1.3); Monocytes % 10.8 % (0.0-12.0); Neutrophil % 51.6 % (36.0-66.0); Platelet Count 149 K/mm3 (150-450); Red Blood Count 3.69 M/mm3 (4.1-5.4); Red Cell Distribution Width 13.9 % (11.5-14.0); White Blood Count 4.7 K/mm3 (4.0-10.5)
[2020-02-18 05:35] LABS: ALBUMIN 3.6 g/dL (3.5-5.0); ALKALINE PHOSPHATASE 96 U/L (38-126); ANION GAP 12.1 MEQ/L (5-15); BLOOD UREA NITROGEN 33 mg/dL (7-17); CHLORIDE 103 mmol/L (98-107); Calcium 9.1 mg/dL (8.4-10.2); Carbon Dioxide 24 mmol/L (22-30); Glucose 302 mg/dL (74-106); Potassium 4.8 mmol/L (3.5-5.1); SGOT/AST 18 U/L (14-36); SGPT/ALT 15 U/L (0-35); SODIUM 134 mmol/L (137-145); Total Protein 6.6 g/dL (6.3-8.2)
[2020-02-18] MEDS ORDERED: Lantus Insulin SQ SCH (08:00)
[2020-02-18] MEDS: NON-FORMULARY ITEM PO SCH ×2 (08:59→14:36)
--- NOTE | 2020-02-18 09:51 | PCM.DS ---
Discharge Summary Date of Admission: 02/17/20 04:01 Admitting Physician: JESUS MANZANARES Primary Care Provider: MELONY CORTES Allergies Allergies No Known Drug Allergies Allergy (Verified 02/17/20 04:56) Hospital Summary - Hospital Course Hospital Course: Pt is 54 yo female pt of Andrzej Cortes and Dr. Philip Figueroa with anxiety, depression, DM, HTN, lumbar disc degeneration, migraine, and hyperlipidemia admitted for low back pain after 2 ER visits. She has not been to the doctor or had her medicine in the past 1 year due to insurance issues (just got on HIP during this hospital stay). She had CT lumbar spine without fracture. Has been on IV morphine but would like something nonaddictive to go home on; failed flexeril. Will try po skelaxin and celebrex. PT to consult today and pt is interested in outpatient PT. Her a1c is 11.63 - started her on lantus today, but she states she was on a po med (likely sulfonylurea) and Trulicity at home. F/u with PCP in 1 week. - Vitals & Intake/Output Vital Signs: Vital Signs Temperature 97.9 F 02/18/20 07:46 Pulse Rate 75 02/18/20 07:46 Respiratory Rate 16 02/18/20 07:46 Blood Pressure 145/80 02/18/20 07:46 O2 Sat by Pulse Oximetry 97 02/18/20 07:46 Intake & Output: Intake & Output 02/15/20 02/16/20 02/17/20 02/18/20 11:59 11:59 11:59 11:59 Intake Total 480 1040 Output Total 132 1300 Balance 348 -260 Weight 71.1 kg - Lab Result Diagrams: 02/18/20 04:50 02/18/20 04:50 Lab Results-Last 24 Hrs: Accuchecks Accucheck Value: 317 Accucheck Value: 232 Accucheck Value: 309 Accucheck Value: 374 Accucheck Value: 360 Lab Results-Last 24 Hours 02/17/20 02/18/20 02/18/20 Range/Units 17:00 04:50 04:50 WBC 4.7 (4.0-10.5) K/mm3 RBC 3.69 L (4.1-5.4) M/mm3 Hgb 11.0 L (12.0-16.0) gm/dl Hct 32.5 L (35-47) % MCV 88.1 (78-100) fl MCH 29.8 (26-32) pg MCHC 33.8 (32-36) g/dl RDW 13.9 (11.5-14.0) % Plt Count 149 L (150-450) K/mm3 MPV 11.3 H (7.5-11.0) fl Gran % 51.6 (36.0-66.0) % Eos # (Auto) 0.08 (0-0.5) Absolute Lymphs (auto) 1.68 (1.0-4.6) Absolute Monos (auto) 0.51 (0.0-1.3) Lymphocytes % 35.7 (24.0-44.0) % Monocytes % 10.8 (0.0-12.0) % Eosinophils % 1.7 (0.00-5.0) % Basophils % 0.2 (0.0-0.4) % Absolute Granulocytes 2.43 (1.4-6.9) Basophils # 0.01 (0-0.4) Sodium 134 L (137-145) mmol/L Potassium 4.8 (3.5-5.1) mmol/L Chloride 103 (98-107) mmol/L Carbon Dioxide 24 (22-30) mmol/L Anion Gap 12.1 (5-15) MEQ/L BUN 33 H (7-17) mg/dL Creatinine 0.80 (0.52-1.04) mg/dL Estimated GFR > 60.0 ML/MIN Glucose 302 H (74-106) mg/dL Hemoglobin A1c 11.63 H (4.5-6.0) % Calcium 9.1 (8.4-10.2) mg/dL Total Bilirubin 0.70 (0.2-1.3) mg/dL AST 18 (14-36) U/L ALT 15 (0-35) U/L Alkaline Phosphatase 96 (38-126) U/L Serum Total Protein 6.6 (6.3-8.2) g/dL Albumin 3.6 (3.5-5.0) g/dL Micro Results-Entire Visit: Accuchecks Accucheck Value: 317 Accucheck Value: 232 Accucheck Value: 309 Accucheck Value: 374 Accucheck Value: 360 - Radiology Exams Ordered Rad Exams-Entire Visit: Radiology Procedures Category Date Time Status LUMBAR SPINE W/O [CT] Stat Exams 02/17/20 01:39 Completed - Procedures and Test Procedures and Tests throughout Hospitalization: Therapy Orders & Screens 02/17/20 04:51 OT Screen per Nursing Assess ONCE Comment: Protocol Order Physician Instructions: Greater than 3 points order OT Admission Screening Reason For Exam: Triggered on Admission Diagnosis: Intractable back pain Open Wound/Cellutlitis/Pressure Ulcers: No Acute Fx/ORIF/Change in wt bearing status: No Severe MUSCULOSKELETAL pain: Yes ADL Dysfunction: No Acute CVA w/Hemiparesis/Hemiplegia: No Decreased Functional Mobility/Strength: Yes Sprain/Strain: No Acute Post-op Mobility Dysfunction: No Total Points: 6 PT Screen per Nursing Assess ONCE Comment: Protocol Order Physician Instructions: Greater than 3 points order PT Admission Screenin Reason For Exam: Triggered on Admission Diagnosis: Intractable back pain Open Wound/Cellutlitis/Pressure Ulcers: No Acute Fx/ORIF/Change in wt bearing status: No Severe MUSCULOSKELETAL pain: Yes ADL Dysfunction: No Acute CVA w/Hemiparesis/Hemiplegia: No Decreased Functional Mobility/Strength: Yes Sprain/Strain: No Acute Post-op Mobility Dysfunction: No Total Points: 6 Smoking Cessation Education ONCE Comment: Diagnosis: Intractable back pain Smoking Status: Current every day smoker How long have you smoked: 7 Have you smoked in the past 12 months: Yes Approximately how many cigarettes per day: 1ppd Do you dip or chew tobacco: No 02/18/20 08:13 PT Eval & Treat (MD Order) ROUTINE Reason for Eval:: low back pain Diagnosis: Intractable back pain Discharge Exam General Appearance: no apparent distress, alert Neurologic Exam: oriented x 3, cooperative Eye Exam: eyes nml inspection Ears, Nose, Throat Exam: moist mucous membranes Neck Exam: normal inspection Respiratory Exam: normal breath sounds, lungs clear, No crackles/rales, No rhonchi, No wheezing Cardiovascular Exam: regular rate/rhythm, normal heart sounds, No murmur Back Exam: normal inspection, other (paraspinal lumbar muscles nttp), No rash Extremity Exam: normal inspection, No pedal edema, No swelling Skin Exam: normal color, warm, dry, No rash Final Diagnosis/Problem List - Final Discharge Diagnosis/Problem (1) Back pain Current Visit: Yes Status: Acute Assessment & Plan: Likely muscular. Would like her to go home if possible on celebrex and skelaxin; discussed increased risk of AR and CVA on celebrex, but will give only temporary supply. Code(s): M54.9 - DORSALGIA, UNSPECIFIED (2) Diabetes mellitus Current Visit: Yes Status: Chronic Assessment & Plan: Home on sulfonylurea and trulicity; f/u with PCP. Code(s): E11.9 - TYPE 2 DIABETES MELLITUS WITHOUT COMPLICATIONS (3) HTN (hypertension) Current Visit: No Status: Chronic Code(s): I10 - ESSENTIAL (PRIMARY) HYPERTENSION - Discharge Disposition: Home, Self-Care Condition: Good Prescriptions: New Celecoxib 100 mg [celeBREX 100 MG] 200 mg PO DAILY #15 capsule Glimepiride 2 mg PO BID #60 tablet Metaxalone [Skelaxin] 800 mg PO TID PRN #30 tablet PRN Reason: Pain Dulaglutide [Trulicity] 0.75 mg SQ WEEKLY #1 unit Follow up with: MELONY CORTES [Primary Care Provider] - 1 Week
[2020-02-18] MEDS ORDERED: celeBREX 100 MG PO SCH (10:00)
[2020-02-18] MEDS ORDERED: NORCO 5/325 MG PO ONE (11:17)
[2020-02-18] MEDS: Voltaren GEL TOP SCH ×2 (14:08→17:40)
[2020-02-18 16:15] VITALS: BP 131/75; PULSE 74; O2SAT 94
== END 2020-02-18 18:50 | disposition home or self-care (01) ==
LOC: ED 01:27 → MED SURG 04:01
PROVIDERS: ADMIT Family Medicine; ATTEND Family Medicine
DX: M54.5 Low back pain (principal); E11.9 Type 2 diabetes mellitus without complications; I10 Essential (primary) hypertension; E78.5 Hyperlipidemia, unspecified; E78.00 Pure hypercholesterolemia, unspecified; F41.8 Other specified anxiety disorders; Z79.899 Other long term (current) drug therapy
CPT/HCPCS: 36415; 72131; 80053; 82962; 83036; 85025; 94762; 96374; 96375; 97161; 99285; G0378; J1817; J1885; J2270; A9270-GY

== ENCOUNTER 2023-01-29 06:25 | Day surgery (SDC) | payer OTHER ==
[2023-01-29] MEDS ORDERED: Lactated Ringers 1,000 ML IV ONE (06:58)
[2023-01-29] MEDS ORDERED: D50W 50 ml Abboject IV ONE (07:22)
[2023-01-29] MEDS ORDERED: DIPRIVAN 200 MG/20 ML IV ONE (08:03)
[2023-01-29] MEDS ORDERED: Versed 2 MG/2 ML Injection ONE (08:03)
[2023-01-29] MEDS ORDERED: Xylocaine-Mpf 2% 5 Ml Vial ONE (08:03)
[2023-01-29 09:30] VITALS: O2SAT 97
[2023-01-29 09:40] VITALS: BP 112/69; PULSE 54
--- NOTE | 2023-01-30 08:15 | OP ---
SURGERY DATE/TIME: 01/29/2023 0804 PREOPERATIVE DIAGNOSIS: Diarrhea. POSTOPERATIVE DIAGNOSES: 1) Mild gastritis. 2) Small sigmoid colon polyp. PROCEDURES: 1) Esophagogastroduodenoscopy with cold forceps biopsy. 2) Colonoscopy with cold forceps biopsy. SURGEON: Dr. Chavez. ANESTHESIA: Medications were given by the anesthesia department. HISTORY: The patient is a 57-year-old white female who reports she has been having problems with diarrhea about every two to three days for the past five weeks. She also reports previous history of diagnosis in 1993 of colitis. The patient denied any bleeding. The patient is felt to need to have endoscopic evaluation.. She was described the risks of the procedure including the risk of perforation, phlebitis, untoward reaction to medication, bleeding and missed lesions. The patient verbalized her understanding and desired to have the procedure performed. DESCRIPTION OF PROCEDURE: The patient was given the medications by the anesthesia department. She had continuous pulse oximetry, ECG monitoring and intermittent blood pressure monitoring during the examination. She was placed in the left lateral decubitus position. A bite block was placed and the flexible Olympus gastroscope was used to intubate the oropharynx. A view of the larynx was obtained and was normal. The scope was easily introduced in the esophagus which appeared to be normal throughout its length. The stomach was entered where normal gastric rugal folds were seen and these distended nicely with insufflation of air. The scope was passed along the greater curvature of the stomach to the antrum. The pylorus encountered and intubated. The duodenum inspected and found to be normal. The scope is withdrawn towards the stomach. A retroflex view was obtained of the lesser curvature, fundus and cardia regions of the stomach and these appeared to be essentially normal. The scope was then redirected towards the gastric antrum and biopsies were obtained to rule out the presence of Helicobacter pylori-type organisms. The scope was then removed from the patient. Next, a digital rectal examination was performed and revealed normal anal sphincter tone and no masses. The flexible Olympus pediatric colonoscope was used to intubate the rectum. A view of the colon was developed sequentially to the cecum including a short distance in the terminal ileum. Upon insertion and withdrawal there was noted a small polyp in the sigmoid colon which is biopsied and destroyed with two passes with the cold forceps biopsy instrument. The scope was removed from the patient who tolerated the procedure well and was sent to OP recovery in good condition. The prep was noted to be good.
== END 2023-01-29 09:47 | disposition home or self-care (01) ==
LOC: SDC 06:25
PROVIDERS: ATTEND Family Medicine
DX: K29.70 Gastritis, unspecified, without bleeding (principal); R19.7 Diarrhea, unspecified; K63.5 Polyp of colon; E11.9 Type 2 diabetes mellitus without complications
CPT/HCPCS: 82947; J2250; J2704

== ENCOUNTER 2023-09-22 11:38 | Emergency (ER) | payer OTHER ==
[2023-09-22 11:48] VITALS: TEMP 97.1
[2023-09-22] MEDS ORDERED: BENADRYL 50 MG/ML ONE (12:37)
[2023-09-22] MEDS ORDERED: MORPHINE SULFATE 4 MG INJ ONE (12:37)
[2023-09-22] MEDS ORDERED: TYLENOL 325 MG ONE (12:38)
[2023-09-22] MEDS: TYLENOL 325 MG PO STA (12:41)
[2023-09-22] MEDS: BENADRYL 50 MG/ML IM ONE (12:42)
[2023-09-22] MEDS: MORPHINE SULFATE 4 MG INJ IM ONE (12:42)
[2023-09-22 13:11] VITALS: BP 98/59; PULSE 78; RESP 16; O2SAT 96
--- NOTE | 2023-09-22 13:21 | ERPHSYRPT ---
- History of Present Illness Time Seen by Provider: 09/22/23 11:44 Source: patient Exam Limitations: no limitations Patient Subjective Stated Complaint: PT HERE FOR HEADACHE SINCE LAST NIGHT, NO INJURY. SOME [place], TOOK ADVIL LAST NIGHT Triage Nursing Assessment: PT ALERT, WALKED IN, RESP EASY, SKIN W/D/P. PUPILS EQUAL. Physician History: 58-year-old female with history of hypertension, hyperlipidemia, diabetes melli tus, migraines presented in the ER with complains of frontal headache since yesterday, moderate to severe sharp throbbing, nonradiating with associated nausea but no vomiting. Denies any visual disturbance/difficulty speech/numbness tingling or focal weakness. Denies any difficulty movements of neck. No fever or chills reported. Reports having similar symptoms multiple times in the past with migraines. She has taken ibuprofen earlier with no significant relief. Allergies/Adverse Reactions: No Known Drug Allergies Allergy (Verified 09/22/23 11:48) Home Medications: Cetirizine HCl [Allergy Relief] 10 mg PO DAILY 01/19/23 [History] Dapagliflozin Propanediol [Farxiga] 10 mg PO DAILY 01/19/23 [History] Ergocalciferol (Vitamin D2) [Vitamin D2] 1 tab PO WEEKLY 01/19/23 [History] Fenofibrate Nanocrystallized [Fenofibrate] 145 mg PO DAILY 01/19/23 [History] Gabapentin [Neurontin ] 600 mg PO BID 01/19/23 [History] Olmesartan/Hydrochlorothiazide [Olmesartan-Hctz 40-25 mg Tab] 1 tab PO DAILY 01/19/23 [History] Rosuvastatin Calcium 20 mg PO DAILY 01/19/23 [History] Semaglutide [Ozempic] 1 mg PO WEEKLY 01/19/23 [History] Mitchell Seed Ext/Levomenthol [Digestive Support Capsule] 1 ea DAILY 09/22/23 [History] Lipase/Protease/Amylase [Jessica Dr 24,000 Unit Capsule] 1 each PO AC 09/22/23 [History] Sodium Zirconium Cyclosilicate [Lokelma] 1 ea DAILY 09/22/23 [History] Topiramate 25 mg [Topamax 25 MG] 25 mg PO DAILY 09/22/23 [History] Hx Tetanus, Diphtheria Vaccination/Date Given: No Hx Influenza Vaccination/Date Given: Yes Hx Pneumococcal Vaccination/Date Given: No Immunizations Up to Date: Yes Travel Risk - International Travel Have you traveled outside of the country in past 3 weeks: No - Coronavirus Screening Are you exhibiting any of the following symptoms?: No Close contact with a COVID-19 positive Pt in past 14-21 Days: No - Vaccine Status Have you recieved a Covid-19 vaccination: No - Review of Systems Constitutional: No Symptoms Eyes: No Symptoms Ears, Nose, & Throat: No Symptoms Respiratory: No Symptoms Cardiac: No Symptoms Abdominal/Gastrointestinal: Nausea Genitourinary Symptoms: No Symptoms Neurological: Headache Psychological: No Symptoms Endocrine: No Symptoms Hematologic/Lymphatic: No Symptoms Immunological/Allergic: No Symptoms - Past Medical History Pertinent Past Medical History: Yes Neurological History: Peripheral Neuropathy ENT History: No Pertinent History Cardiac History: High Cholesterol, Hypertension Respiratory History: No Pertinent History Endocrine Medical History: Diabetes Type II Musculoskeletal History: Arthritis GI Medical History: No Pertinent History History: Other Psycho-Social History: Depression Female Reproductive Disorders: No Pertinent History Other Medical History: PERIPHERAL NEUROPATHY. disc issues with back. incontinence - Past Surgical History Past Surgical History: Yes Neuro Surgical History: No Pertinent History Cardiac: No Pertinent History Respiratory: No Pertinent History Gastrointestinal: Cholecystectomy Genitourinary: Other Musculoskeletal: No Pertinent History Female Surgical History: Hysterectomy, Tubal Ligation Other Surgical History: bladder tie up, toe nail removed - Social History Smoking Status: Current every day smoker How long have you smoked: 7 Exposure to second hand smoke: Yes Drug Use: none Patient Lives Alone: No Significant Family History: no pertinent family hx - Nursing Vital Signs Nursing Vital Signs: Initial Vital Signs Temperature 97.1 F 09/22/23 11:47 Pulse Rate 82 09/22/23 11:47 Respiratory Rate 18 09/22/23 11:47 Blood Pressure 127/67 09/22/23 11:47 O2 Sat by Pulse Oximetry 98 09/22/23 11:47 Pain Scale Pain Intensity 10 - Physical Exam General Appearance: no apparent distress, alert Eye Exam: PERRL/EOMI Ears, Nose, Throat Exam: normal ENT inspection, TMs normal, pharynx normal, moist mucous membranes Neck Exam: normal inspection, non-tender, supple, full range of motion Respiratory Exam: normal breath sounds, lungs clear Cardiovascular Exam: regular rate/rhythm, normal heart sounds Gastrointestinal/Abdominal Exam: soft, normal bowel sounds, No tenderness Back Exam: normal inspection, normal range of motion Extremity Exam: normal inspection, normal range of motion Mental Status Exam: alert, oriented x 3, cooperative application spec Exam: normal hearing, normal speech, PERRL Coordination/Gait Exam: normal finger to nose, normal gait Motor/Sensory Exam: no motor deficit, no sensory deficit, no pronator drift, negative Babinski's sign DTR Exam: bicep (R): 2+, bicep (L): 2+, knee (R): 2+, knee (L): 2+ SpO2 Interpretation: normal SpO2: 96 O2 Delivery: Room Air Ordered Tests: Active Orders 24 hr Category Date Time Status HEAD WITHOUT CONTRAST [CT] Stat Exams 09/22/23 13:15 Completed Medication Summary Discontinued Medications Generic Name Dose Route Start Last Admin Trade Name Freq PRN Reason Stop Dose Admin Acetaminophen 975 mg 09/22/23 12:22 09/22/23 12:41 Acetaminophen 325 Mg Tablet PO 09/22/23 12:23 975 mg STAT STA Administration Acetaminophen Confirm 09/22/23 12:38 Acetaminophen 325 Mg Tablet Administered 09/22/23 12:39 Dose 975 mg .ROUTE .STK-MED ONE Diphenhydramine HCl 50 mg 09/22/23 12:22 09/22/23 12:42 Diphenhydramine Hcl 50 Mg/Ml Vial IM 09/22/23 12:23 50 mg STAT ONE Administration Diphenhydramine HCl Confirm 09/22/23 12:37 Diphenhydramine Hcl 50 Mg/Ml Vial Administered 09/22/23 12:38 Dose 50 mg .ROUTE .STK-MED ONE Sodium Chloride 1,000 mls @ 999 mls/hr 09/22/23 13:15 09/22/23 13:50 Sodium Chloride 0.9% 1000 Ml IV 09/22/23 14:15 999 mls/hr .Q1H1M STA Administration Sodium Chloride Confirm 09/22/23 13:22 Sodium Chloride 0.9% 1000 Ml Administered 09/22/23 13:23 Dose 1,000 mls @ ud .ROUTE .STK-MED ONE Metoclopramide HCl 10 mg 09/22/23 13:14 09/22/23 13:56 Metoclopramide Hcl 10 Mg/2 Ml Vial IV 09/22/23 13:15 10 mg STAT ONE Administration Metoclopramide HCl Confirm 09/22/23 13:22 Metoclopramide Hcl 10 Mg/2 Ml Vial Administered 09/22/23 13:23 Dose 10 mg .ROUTE .STK-MED ONE Morphine Sulfate 4 mg 09/22/23 12:22 09/22/23 12:42 Morphine Sulfate 4 Mg/Ml Injection IM 09/22/23 12:23 4 mg STAT ONE Administration Morphine Sulfate Confirm 09/22/23 12:37 Morphine Sulfate 4 Mg/Ml Injection Administered 09/22/23 12:38 Dose 4 mg .ROUTE .STK-MED ONE Morphine Sulfate 2 mg 09/22/23 13:14 09/22/23 13:55 Morphine Sulfate 2 Mg/Ml Inj IV 09/22/23 13:15 2 mg STAT ONE Administration Morphine Sulfate Confirm 09/22/23 13:22 Morphine Sulfate 2 Mg/Ml Inj Administered 09/22/23 13:23 Dose 2 mg .ROUTE .STK-MED ONE - Progress Progress: improved, re-examined Air Movement: good Progress Note: 09/22/23 14:26 58-year-old female with history of migraines is evaluated in the ER for frontal headache. Patient has nonfocal neuroexam throughout stay in the ER. Headache is similar to previous, was initially given morphine and Benadryl IM with no significant improvement and have obtained CT head which is negative. I have given her fluids and small dose of morphine along with Reglan again and she is feeling much better. Her nausea is improved. She has food tray while in here. Neuroexam remained nonfocal. Patient has history of CKD, recommended taking Tylenol and outpatient follow-up with her primary care to be placed on some prophylactic medications. She has no signs of meningismus. Do not think she needs any other workup. Discussed signs symptoms of worsening needing return to ER which she seems understanding. Stable for discharge. Blood Culture(s) Obtained: No Antibiotics given: No Counseled pt/family regarding: diagnosis, need for follow-up Medical Desision Making - Diagnostic Testing Diagnostic test were ordered, analyzed, and reviewed by me: Yes Radiological Interpretation: Reviewed by me, Teleradiologist Report - Departure Departure Disposition: Home Clinical Impression: Migraine Qualifiers: Migraine type: migraine (< 15 days per month) without aura Status migrainosus presence: without status migrainosus Intractability: not intractable Qualified Code(s): G43.009 - Migraine without aura, not intractable, without status migrainosus Condition: Stable Critical Care Time: No Referrals: MELONY ROBERTS NP [Primary Care Provider] - Follow up/PCP as directed Instructions: Headache, Adult (DC) Additional Instructions: Take Tylenol as needed. Follow-up with your primary care for reevaluation and may need referral for neurology to be placed on prophylactic medications for repeated headaches. Return to ER for intractable headache, numbness tingling weakness, intractable vomiting, difficulty speech or visual disturbance etc.
[2023-09-22] MEDS ORDERED: Sodium Chloride 0.9% 1000 ML 1,000 ML ONE (13:22)
[2023-09-22] MEDS ORDERED: MORPHINE SULFATE 2 MG INJ ONE (13:22)
[2023-09-22] MEDS ORDERED: Reglan 10 MG/2 ML ONE (13:22)
[2023-09-22] MEDS: Sodium Chloride 0.9% 1000 ML 1,000 ML IV STA (13:50)
[2023-09-22] MEDS: MORPHINE SULFATE 2 MG INJ IV ONE (13:55)
[2023-09-22] MEDS: Reglan 10 MG/2 ML IV ONE (13:56)
--- NOTE | 2023-09-22 14:05 | XRAY ---
CLINICAL HISTORY: HEADACHE TECHNIQUE: An axial plain CT scan of the brain was performed from the skull base to the high parietal region without IV contrast. Multiple reformats were obtained and submitted for interpretation. COMPARISON: None. FINDINGS: No evidence of established territorial ischemic infraction. No intracerebral or extra axial hematoma. No obvious space-occupying lesion seen. The visualized brain parenchyma shows a normal appearance. No focal parenchymal abnormalities are demonstrated. Dunne-white matter differentiation is maintained. No midline shifts or deformity. Normal size and configuration of the cerebral ventricles. Normal CT appearance of the posterior fossa structures namely the cerebellar hemispheres, brainstem and cerebellar peduncles. No definite calvarium fractures. Scanned paranasal sinuses are clear. IMPRESSION: 1. No evidence of established territorial infraction, intracerebral or extra axial hematoma or mass effect. 2. No significant abnormality identified. Electronically Signed by: Estrellita Cano MD. (09/22/2023 12:56:23 LAUNDRY RO[employer] ATTENDANT)
== END 2023-09-22 14:37 | disposition home or self-care (01) ==
LOC: ED 11:38
DX: G43.009 Migraine without aura, not intractable, without status migrainosus (principal); I10 Essential (primary) hypertension; E78.5 Hyperlipidemia, unspecified; E11.42 Type 2 diabetes mellitus with diabetic polyneuropathy; Z79.84 Long term (current) use of oral hypoglycemic drugs; Z79.899 Other long term (current) drug therapy; Z28.310 Unvaccinated for COVID-19; Z72.0 Tobacco use
CPT/HCPCS: 36000; 70450; 96372; 96375; 99284; J1200; J2270; A9270-GY